=== PATIENT | male | born 1980 | race Two or more races ===

== ENCOUNTER 2022-05-27 00:01 | Emergency (ER) | payer MEDICAID ==
[~2022-05-27] VITALS: Ht 172.7 cm; Wt 78.2 kg
[2022-05-27 01:00] VITALS: BP 126/90
[2022-05-27] MEDS ORDERED: FLUORESCEIN SOD OPTH TEST STRIP EACHEYE ONE (01:00)
[2022-05-27] MEDS ORDERED: TETRACAINE HCL 0.5% OPTH(EYE) SOLN 4ML EACHEYE ONE (01:00)
[2022-05-27] MEDS ORDERED: CIP03OS LEFTEYE (01:34)
== END 2022-05-27 02:01 | disposition home or self-care (01) ==
LOC: ER 00:01
DX: T15.02XA Foreign body in cornea, left eye, initial encounter (principal); W22.8XXA Striking against or struck by other objects, initial encounter; Y93.89 Activity, other specified; Y92.89 Other specified places as the place of occurrence of the external cause; Y99.8 Other external cause status
CPT/HCPCS: 65222